=== PATIENT | male | born 1960 | race Caucasian/White ===

== ENCOUNTER 2024-01-01 12:28 | Emergency (ER) | payer BC, MEDICAID ==
[~2024-01-01] VITALS: Ht 170.2 cm; Wt 82.6 kg
[2024-01-01 12:47] VITALS: BP 124/72; PULSE 78; RESP 20; TEMP 97.9; O2SAT 95
[2024-01-01 13:26] VITALS: PULSE 75; RESP 24; O2SAT 95
[2024-01-01] MEDS: ALBUTEROL 0.083% 2.5 MG/3 ML NEBU INH ONE (13:26)
[2024-01-01] MEDS ORDERED: ALBU0.0912 IH (13:55)
[2024-01-02] MEDS ORDERED: AMOX1TAB8 PO (08:34)
[2024-01-02] MEDS ORDERED: AZIT250T4 PO (08:34)
== END 2024-01-01 14:06 | disposition home or self-care (01) ==
LOC: MED 12:28
DX: J44.9 Chronic obstructive pulmonary disease, unspecified (principal); F17.210 Nicotine dependence, cigarettes, uncomplicated; Z79.899 Other long term (current) drug therapy
CPT/HCPCS: 71045; 94640; 99283; J7613